=== PATIENT | female | born 2000 | race Asian ===

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

== ENCOUNTER → 2018-10-03 | Outpatient (CLI) | payer OTHER ==
--- NOTE | 2018-10-03 15:45 | KCIC ---
2 View CXR. Clinical indications: Screening for TB. Positive PPD screening test. Had TB vaccine a child.. Findings: No acute lung infiltrate or pleural effusion or pulmonary edema or lung mass or cavitary nodule or pneumothorax is seen. The heart size, pulmonary vasculature, mediastinum and both nicole are unremarkable. The osseous structures appear intact. Impression: No acute radiographic abnormality is seen. Specifically, there are no radiographic findings indicative of active tuberculous lung disease. seen. Electronically signed by: Lc Espinoza MD (10/03/2018 3:42 PM) [place] [id number]
== END | disposition home or self-care (01) ==
LOC: KCIC 13:25
PROVIDERS: ATTEND Family Medicine
DX: Z11.1 Encounter for screening for respiratory tuberculosis (principal)
CPT/HCPCS: 71046

== ENCOUNTER → 2019-10-30 | Outpatient (CLI) | payer OTHER ==
--- NOTE | 2019-10-30 13:14 | KCIC ---
Single view of the chest. 10/30/2019 12:00 AM Indication: Reason: TB SCREENING / Spl. Instructions: / History: Comparison: cxr 7.3.19 Findings: There is no focal consolidation. There is no pleural effusion or pneumothorax. The cardiomediastinal silhouette and pulmonary vasculature are within normal limits. No acute osseous abnormalities are seen. Impression: No evidence of acute cardiopulmonary process. Electronically signed by: Leeroy Huitron MD (10/30/2019 1:11 PM) [id number]
== END | disposition home or self-care (01) ==
LOC: KCIC 11:33
PROVIDERS: ATTEND Family Medicine
DX: Z11.1 Encounter for screening for respiratory tuberculosis (principal)
CPT/HCPCS: 71045